=== PATIENT | male | born 1960 ===

== ENCOUNTER 2018-07-14 18:07 | Emergency (ER) | payer MEDICAID ==
--- NOTE | 2018-07-14 19:21 | ED PDOC ---
HPI: Psych/Substance Abuse Time Seen by Provider: 07/14/18 18:16 Chief Complaint (Nursing): Psychiatric Evaluation Chief Complaint (Provider): psych evaluation Additional Complaint(s): 57 y/o M with hx of HIV who was brought in for psych and medical evaluation for incarceration. Pt c/o suicidal ideations prior to arrival. Currently patient complaining of thirst and being verbally abusive towards provider and staff using foul language. He is refusing to answer questions and states that the only thing that he will say is that he wants water. Pt answers all questions by stating "pinga" and that he does not care who I am. Past Medical History Reviewed: Historical Data, Nursing Documentation, Vital Signs Vital Signs: Last Vital Signs Temp 98.0 F 07/14/18 18:10 Pulse 72 07/14/18 18:10 Resp 16 07/14/18 18:10 BP 132/76 07/14/18 18:10 Pulse Ox 98 07/14/18 18:10 Primary Care Provider: ANTON ORTIZ - Medical History PMH: HIV - Family History Family History: States: Unknown Family Hx - Home Medications Home Medications: Ambulatory Orders Medication Instructions Recorded Amoxicillin/Clavulanate [Augmentin 1 tab PO BID #13 tab 02/12/16 875 MG-125 MG] Ciprofloxacin [Cipro] 500 mg PO BID #13 tab 02/12/16 Ibuprofen [Motrin] 600 mg PO TID PRN #30 tab 02/12/16 traMADol [Ultram] 50 mg PO Q8 PRN #12 tab 02/12/16 - Allergies Allergies/Adverse Reactions: Allergies Allergy/AdvReac Type Severity Reaction Status Date / Time No Known Allergies Allergy Verified 07/14/18 18:09 Review of Systems Constitutional: Positive for: Other (thirst) Physical Exam - Reviewed Nursing Documentation Reviewed: Yes Vital Signs Reviewed: Yes - Physical Exam Appears: Positive for: Non-toxic (patient refused to participate fully with exam) Head Exam: Positive for: ATRAUMATIC Skin: Positive for: Normal Color Eye Exam: Positive for: Normal appearance Neurological/Psych: Positive for: Awake, Alert. Negative for: Lethargic, Facial Droop - ECG O2 Sat by Pulse Oximetry: 98 Medical Decision Making Medical Decision Makin:1 observation Crisis evaluation Accucheck Accucheck: 99 Seen by sill worker, pt is psychiatrically stable for incarceration as per Dr. Fox. Disposition - Clinical Impression Clinical Impression: Medical clearance for incarceration - Patient ED Disposition Is Patient to be Admitted: No - Disposition Referrals: [facility] [Outside] Disposition: Discharged/Transfer to Law Enforcement Disposition Time: 19:32 Condition: STABLE Additional Instructions: You are medically and psychiatrically stable for incarceration. Forms: Jy[employer] (Ukrainian) Print Language: SAMI
[2018-07-14 22:34] VITALS: BP 122/70; PULSE 78; RESP 18; TEMP 98
[2018-07-17 15:40] VITALS: O2SAT 98
== END 2018-07-14 20:11 ==
LOC: H.ER 18:07
DX: R45.851 Suicidal ideations; R63.1 Polydipsia; B20 Human immunodeficiency virus [HIV] disease